=== PATIENT | female | born 1975 | race Caucasian/White ===

== ENCOUNTER → 2016-12-26 | Outpatient (CLI) | payer BC ==
--- NOTE | 2016-12-27 07:40 | MAMMOGRAPHY REPORT ---
BILATERAL DIGITAL DIAGNOSTIC MAMMOGRAM TOMOSYNTHESIS WITH CAD AND TARGETED LEFT ULTRASOUND: 12/26/2016 CLINICAL HISTORY: 41 year-old woman presents for bilateral screening mammography as well as second f ollow-up of 3 small groupings of microcalcifications in the anterior subareolar left breast. Strong family history of breast cancer = sister in her 30s. TECHNIQUE: Bilateral CC and MLO 2-D digital and tomosynthesis images, spot magnification left CC and ML views were obtained. Current study was also evaluated with a Computer Aided Detection (CAD) syst em. COMPARISON: Comparison is made to exams dated: 07/03/2016 mammogram, 12/29/2015 mammogram, 12/22/2015 ma mmogram - [facility], and 10/20/2008. BREAST COMPOSITION: The tissue of both breasts is heterogeneously dense, which may obscure small ma sses. FINDINGS: The breast parenchymal pattern is somewhat similar to prior available mammograms. Howeve r, there is an increasingly prominent 3 x 4 x 5 cm focal asymmetry in the upper outer posterior left breast. There is no associated architectural distortion, spiculation or calcification. However, f urther evaluation with ultrasound was performed. Otherwise, microcalcifications are again seen in the anterior subareolar left breast for which addit ional spot magnification views were performed. On the spot magnification views, the 3 groupings of microcalcifications are stable comparing back to the 12/29/2015 spot magnification views and may rep resent benign calcifications however, given that they were not clearly seen on the 2007 mammogram, l onger stability is needed and another close follow-up mammogram is recommended in 12 months. No oth er new suspicious mass, focal area of architectural distortion or other microcalcifications are seen bilaterally. Targeted ultrasound was performed in the left upper outer quadrant. There are islands of dense hype rglandular tissue, one area in particular in the 1:00 left breast approximately 12 cm from the nippl e is more hypoechoic when comparing to the remainder of the dense glandular tissue. Although this m ay simply represent stromal fibrosis, given the increasingly prominent mammographic appearance and i ll-defined sonographic appearance, definitive characterization with an ultrasound-guided core needle biopsy is recommended. IMPRESSION: ACR BI-RADS CATEGORY 4: SUSPICIOUS, TARGETED ULTRASOUND ACR BI-RADS CATEGORY 4: SUSPICI OUS 1. Ultrasound guided core biopsy is recommended for an ill-defined hypoechoic area in the 1:00 left breast approximately 12 cm from the nipple, thought to correlate with an increasingly prominent foc al asymmetry in the left upper outer quadrant seen mammographically. 2. 3 groupings of microcalcifications in the anterior subareolar left breast are stable for one yea r based on spot magnification views. However, given that they were not seen on the 2007 mammogram, longer stability is needed, and repeat spot magnification views are recommended in 12 months. 3. Pending pathology results in the 1:00 left breast, would also recommend screening breast MRI, gi beth the personal history of dense breasts and strong family history of premenopausal breast cancer, with a sister diagnosed in her 30s. These results and recommendations were discussed with the patient at the time of the exam. She tent atively scheduled the biopsy prior to leaving our department. Approximately 10% of breast cancers are not detected with mammography. A negative mammographic repor t should not delay biopsy if a clinically suggestive mass is present. Rhoda Mccallum M.D. ay/:12/26/2016 15:22:31 Professional Fighter: Camelia NEWTON(Stephen)(Gisel), [facility] letter sent: Abnormal 4/5 BI-RADS Code: ACR BI-RADS Category 4: Suspicious Ultrasound BI-RADS: ACR BI-RADS Category 4: Suspic ious
== END | disposition home or self-care (01) ==
LOC: C.MAMM 13:39
PROVIDERS: ATTEND Family Medicine
DX: N64.89 Other specified disorders of breast (principal); R92.0 Mammographic microcalcification found on diagnostic imaging of breast

== ENCOUNTER → 2016-12-27 | Outpatient (CLI) | payer BC ==
--- NOTE | 2016-12-27 13:04 | Discharge Instructions ---
Discharge Instructions Procedure Procedure Date: Dec 27, 2016. Reason for visit: Left Mass. Discharge Discharge Date: Dec 27, 2016. Discharge Diagnosis: status post breast biopsy Instructions Activity Recommendations: Additional Limitations (see below) Return to School/Work: no limitations Recommended Home Diet: No Limitations Provider Instructions: ACTIVITY RECOMMENDATIONS: * No lifting, pushing, pulling or exercising the affected side for three days. RETURN TO SCHOOL/WORK: * You may return to work/school after the procedure, but do not perform any strenuous activities for 24 to 48 hours. MEDICATIONS: * Tylenol (two 325 mg) every four to six hours if needed for mild pain (if not allergic to Tylenol). DIET: * Resume previous diet. SPECIAL CARE INSTRUCTIONS: * Keep biopsy site dry for 24 hours. May shower after 24 hours, but do not soak (bathe) incision. * May remove Tegaderm (plastic patch) tomorrow AFTER showering. * Leave the steri-strips on for one week. Allow the steri-strips to fall off by themselves. If not off after one week, you may remove them. You may place a Bandaid crosswise over the strips, if desired. * Apply ice 10 minutes on and 10 minutes off as needed. * Wear a bra at bedtime to sleep more comfortably for 2-3 days. * Your referring physician should have the results after approximately 5 to 7 business days. * Call for unusual bleeding, fever, drainage, etc or if you have any questions call during normal business hours or after hours call Dr Castle, [phone]. FOLLOW UP VISIT: Follow-up with Referring Physician as scheduled. Allergies Uncoded Allergies: NKA (Allergy, Unknown, 12/04/02) NO (Allergy, Unknown, 12/04/02) Damian Miller Recommendations: Call your doctor if: * Temperature above 101 degrees * Pain not relieved by pain medicine ordered * There is increased drainage or redness from any incision * You have any unanswered questions or concerns. Your Doctors Instructions noted above were prepared by provider Elisa Castle. Patient Signature Section: Patient Instructions Signature Page Mary Milian Patient (or Guardian) Signature/Date: I have read and understand the instructions given to me by my caregivers. Caregiver/RN/Doctor Signature/Date: The above-named patient and/or guardian has received patient instructions on this date. + Original Patient Signature Page (only) stays with chart. Please make copy for patient.
--- NOTE | 2016-12-27 15:30 | MAMMOGRAPHY REPORT ---
ULTRASOUND GUIDED BIOPSY LEFT BREAST: 12/27/2016 CLINICAL HISTORY: Hypoechoic lesion in the left breast at 1:00. PATIENT CONSENT: The procedure, risks and benefits were discussed with the patient and informed writ ten consent was obtained. A timeout was performed immediately prior to the procedure. PROCEDURE DESCRIPTION: With ultrasound guidance, aseptic technique, and lidocaine as the local anest hetic (1% lidocaine to anesthetize the skin and 1% lidocaine with epinephrine to anesthetize the urdolph per tissues), the hypoechoic region in the left 1:00 breast was sampled 3 times with a 14-gauge Achi jose manuel biopsy needle. Immediately thereafter, with ultrasound guidance, aseptic technique, and lidocai ne as the local anesthetic, a metallic localizer clip was placed at the biopsy site. Direct pressur e was applied to the site immediately post procedure and hemostasis was achieved. Postprocedure uni lateral mammograms were performed to confirm clip placement. The patient tolerated the procedure wit hout complication. She was given wound care instructions. The specimens were sent to pathology for analysis. COMPARISON: Comparison is made to exams dated: 12/26/2016 mammogram, 12/26/2016 ultrasound, 07/03/2016 m ammogram, 12/29/2015 mammogram, and 12/22/2015 mammogram - [facility]. IMPRESSION: ULTRASOUND GUIDED BIOPSY Ultrasound guided core needle biopsy of the hypoechoic region in the left 1:00 breast, with clip bhavik cement. The patient will receive pathology results from her referring provider. Elisa Castle M.D. /:12/27/2016 13:06:55 Finish Mixer: Amara NEWTON(Stephen)(M), [facility]
--- NOTE | 2016-12-27 15:31 | MAMMOGRAPHY REPORT ---
UNILATERAL LEFT DIGITAL DIAGNOSTIC MAMMOGRAM: 12/27/2016 CLINICAL HISTORY: Status post ultrasound-guided biopsy of the hypoechoic region in the left 1:00 margie ast. TECHNIQUE: Postprocedural left CC and ML views were obtained. COMPARISON: Comparison is made to exams dated: 12/29/2015 mammogram, 07/03/2016 mammogram, 12/22/2015 ma mmogram, and 12/26/2016 ultrasound - [facility]. BREAST COMPOSITION: The tissue of the left breast is heterogeneously dense, which may obscure small masses. FINDINGS: A new biopsy marker clip is seen in the expected location of the biopsied hypoechoic lesion in the l eft breast at 1:00. No significant postbiopsy hematoma is seen. IMPRESSION: POST PROCEDURE IMAGING FOR MARKER PLACEMENT New biopsy marker clip status post ultrasound-guided biopsy of the hypoechoic region in the left 1:0 0 breast. Pathology results are pending. Approximately 10% of breast cancers are not detected with mammography. A negative mammographic repor t should not delay biopsy if a clinically suggestive mass is present. Elisa Castle M.D. ah/:12/27/2016 13:14:05 Merchandise Pickup/Receiving Associate: Amara NEWTON(R)(M), [facility] BI-RADS Code: Post Procedure Imaging For Marker Placement
== END | disposition home or self-care (01) ==
LOC: C.MAMM 12:26
PROVIDERS: ATTEND Family Medicine
DX: N60.32 Fibrosclerosis of left breast (principal)

== ENCOUNTER → 2017-04-11 | Outpatient (CLI) | payer BC ==
--- NOTE | 2017-04-11 12:48 | DIAGNOSTIC IMAGING REPORT ---
EXAMINATION: PELVIC ULTRASOUND CLINICAL HISTORY: AB PAIN BLEEDING COMPARISON STUDY: None FINDINGS: The uterus measured 7.3 cm. The endometrial stripe measured 8 mm. The right ovary measured 3.4 cm maximum dimension with normal vascular flow. The left ovary measured 3.9 cm with normal vascular flow. There is no ultrasonographic evidence of ovarian torsion. It should be noted that ovarian torsion can be present with normal Doppler ultrasonographic findings. There was no evidence of pathologic free pelvic fluid. IMPRESSION: Normal study Electronically signed by: Jeffery Adan M.D. 04/11/2017 12:46 PM Dictated Date/Time: 04/11/2017 12:27 PM
== END | disposition home or self-care (01) ==
LOC: C.ULTR 11:48
PROVIDERS: ATTEND Physician Assistant
DX: R10.32 Left lower quadrant pain (principal); N92.4 Excessive bleeding in the premenopausal period

== ENCOUNTER → 2017-08-09 | Outpatient (CLI) | payer BC ==
[~2017-08-09] MED LIST: GADAVIST IV PRN
--- NOTE | 2017-08-10 13:42 | MAMMOGRAPHY REPORT ---
BREAST MRI OF BOTH BREASTS : 08/09/2017 CLINICAL HISTORY: Screening breast MRI. Strong family history of breast cancer. History of benign u ltrasound-guided biopsy of the left breast December 2016. COMPARISON: Comparison is made to exams dated: 12/27/2016 ultrasound biopsy, 12/27/2016 mammogram, 017 mammogram, 12/26/2016 ultrasound, 07/03/2016 mammogram, and 12/29/2015 mammogram - [facility]. Technique: The patient was placed prone in a dedicated breast imaging coil. Precontrast axial T1-renea ghted, axial T2-weighted fat saturation, and axial T1-weighted fat saturation images were obtained. After the administration of 7 mL of Gadavist IV contrast, sequential T1-weighted fat saturation image s were obtained. Subtraction images were obtained of the dynamic contrast enhanced sequences, and 3- D reformations were performed. The CiRBA software was used for kinetic analysis. Findings: There is moderate background parenchymal enhancement involving bilateral breasts. There are no suspi cious enhancing masses or areas of abnormal non-mass enhancement seen within either breast. Clip art ifact is seen within the left upper outer quadrant related to prior benign ultrasound-guided biopsy. There is a circumscribed tubular 16 x 4 mm mass in the left 3:00 periareolar breast, which is T1 hyp erintense and demonstrates no postcontrast enhancement, and is benign and likely represents a cyst or area of focal duct ectasia (series 501 image 89). There is no evidence of axillary adenopathy. The chest wall structures are negative. Extramammary s oft tissues are unremarkable. IMPRESSION: ACR BI-RADS CATEGORY 2: BENIGN No MRI evidence of malignancy in either breast. A 1 year screening breast MRI is recommended, given the strong family history of breast cancer. Note that the patient is due for bilateral diagnostic ma mmograms December 2017. Elisa Castle M.D. /:08/09/2017 16:59:40 [employer] Senior Officer: gum mixer, [facility] letter sent: Normal 1/2 BI-RADS Code: ACR BI-RADS Category 2: Benign
== END | disposition home or self-care (01) ==
LOC: C.MRI 08:34
PROVIDERS: ATTEND Physician Assistant
DX: R92.0 Mammographic microcalcification found on diagnostic imaging of breast (principal); Z80.3 Family history of malignant neoplasm of breast

== ENCOUNTER → 2017-12-31 | Outpatient (CLI) | payer BC ==
--- NOTE | 2017-12-31 15:19 | MAMMOGRAPHY REPORT ---
BILATERAL DIGITAL DIAGNOSTIC MAMMOGRAM TOMOSYNTHESIS WITH CAD AND TARGETED RIGHT ULTRASOUND: 8 CLINICAL HISTORY: 42-year-old woman with a strong family history of breast cancer presents for a clos e follow-up of left breast microcalcifications. She had a prior benign ultrasound-guided biopsy in t he left upper outer quadrant. Also due for annual bilateral mammograms. TECHNIQUE: Bilateral breast tomosynthesis in addition to standard 2D mammography was performed. Spot magnification left CC and MLO views were also obtained. Current study was also evaluated with a [employer] Aided Detection (CAD) system. COMPARISON: Comparison is made to exams dated: 12/27/2016 mammogram, 12/26/2016 mammogram, 07/03/2016 [facility] mogram, 12/22/2015 mammogram - [facility], 10/20/2008, and 12/29/2015 mammogram - [facility]. BREAST COMPOSITION: The tissue of both breasts is heterogeneously dense, which may obscure small mas ses. FINDINGS: There is a stable ribbon-shaped biopsy marker clip in the upper outer quadrant of the left breast. There is stable asymmetry in the superior posterior left breast on the MLO view. The spot m agnification views of the left breast redemonstrate 2 groupings of microcalcifications in the anterio r and inferior subareolar left breast. Although none demonstrate definitive layering on the spot mag nification ML view to confirm benign milk of calcium, the calcifications are unchanged dating back to spot magnification views obtained on 12/29/2015 and are therefore likely benign. No new suspicious ma ss, architectural distortion or cluster of microcalcifications identified in the left breast. There is been increasingly conspicuous 5 mm nodular asymmetry in the middle one third of the right br east along the posterior nipple line on the CC view. The corresponding tomosynthesis images are not definitive for a mass versus normal fiber glandular tissue although the appearance is somewhat simila r to the prior mammograms obtained 2 12/26/2016. Nevertheless, further evaluation with ultrasound was performed in the right breast. No other suspicious masses, calcifications, areas of architectural di stortion or asymmetries identified in the right breast. Targeted ultrasound was performed in the right breast along the sagittal plane of the nipple focusing in the 12:00, retroareolar and 6:00 axes but also the 11:00 and 1:00 axes. Sonographically normal t issue is seen without a suspicious solid or cystic mass. IMPRESSION: ACR-BI-RADS CATEGORY 3: PROBABLY BENIGN, TARGETED ULTRASOUND ACR-BI-RADS CATEGORY 3: PRO BABLY BENIGN 1. Stable mammographic appearance of the left breast including 2 dominant groupings of benign-appear ing micro calcifications that are unchanged on spot magnification views for at least 2 years. Anothe r 12 month follow-up diagnostic mammogram including left breast spot magnification views is recommend ed to ensure longer stability. 2. A 5 mm nodular asymmetry in the middle one third of the right breast has no suspicious sonographi c correlate and most likely represented normal overlapping fibroglandular tissue. Recommend follow-u p of the right breast in 12 months. 3. Given the strong family history of breast cancer and dense breasts, would also recommend continue d screening with breast MRI as well. Approximately 10% of breast cancers are not detected with mammography. A negative mammographic report should not delay biopsy if a clinically suggestive mass is present. Rhoda Mccallum M.D. ay/:12/31/2017 15:01:48 Sales Contract Administrator: Amara Aguirre RT(R)(M), [facility] letter sent: Follow Up Recommended 3 BI-RADS Code: ACR-BI-RADS Category 3: Probably Benign Ultrasound BI-RADS: ACR-BI-RADS Category 3: Pr obably Benign
== END | disposition home or self-care (01) ==
LOC: C.MAMM 14:03
PROVIDERS: ATTEND Physician Assistant
DX: R92.8 Other abnormal and inconclusive findings on diagnostic imaging of breast (principal); N64.89 Other specified disorders of breast